=== PATIENT | female | born 1980 ===

== ENCOUNTER 2016-10-07 20:01 | Emergency (ER) | payer MEDICAID ==
[~2016-10-07] VITALS: Ht 172.7 cm; Wt 56.8 kg
[2016-10-07 20:25] VITALS: BP 119/78
[2016-10-07] MEDS ORDERED: DiphenhydrAMINE HCL 50 MG/ML VIAL IM ONE (21:00)
[2016-10-07] MEDS ORDERED: IBUPROFEN 600 MG TABLET PO ONE (21:00)
[2016-10-07] MEDS ORDERED: MethylPREDNISolone SOD SUCC 125 MG/2 ML VIAL IM ONE (21:00)
[2016-10-07] MEDS ORDERED: ACETAMINOPHEN 500 MG TABLET PO ONE (21:00)
== END 2016-10-07 21:10 | disposition home or self-care (01) ==
LOC: EMS 20:03
DX: T63.481A Toxic effect of venom of other arthropod, accidental (unintentional), initial encounter (principal); J45.909 Unspecified asthma, uncomplicated; Z88.0 Allergy status to penicillin; Y93.89 Activity, other specified; Y99.8 Other external cause status; Y92.89 Other specified places as the place of occurrence of the external cause
CPT/HCPCS: 96372; 99284; J1200; J2930